=== PATIENT | male | born 1980 | race Caucasian/White ===

== ENCOUNTER → 2018-05-02 | Outpatient (CLI) | payer BC ==
[~2018-05-02] VITALS: Ht 175.3 cm; Wt 89.7 kg
[2018-05-02] VITALS (12 sets, daily range): BP systolic 108–137; BP diastolic 60–86; PULSE 56–70
[~2018-05-02] MED LIST: HUMIRA40 MG/0.8 SQ
[2018-05-02 10:17] LABS: PROTHROMBIN TIME 11.6 SECONDS (9.7-12.8)
--- NOTE | 2018-05-02 11:00 | NUR ---
PT BROUGHT INTO THE ROOM. POSITIONED ON CT TABLE, MONITORING EQUIPMENT PLACED AND TIME OUT DONE.
--- NOTE | 2018-05-02 11:05 | NUR ---
DR CAMARGO TALKING WITH THE PT.
--- NOTE | 2018-05-02 11:15 | NUR ---
PT DOING WELL. NO PIAN
--- NOTE | 2018-05-02 11:20 | NUR ---
PT DOING WELL. NO PAIN
--- NOTE | 2018-05-02 11:25 | NUR ---
PROCEDURE COMPLETE. PT STATES NO PAIN. ASSISTED TO SIT ON SIDE OF THE TABLE. SITE IS CDI. PT STANDS AND GETS IN WHEELCHAIR.
--- NOTE | 2018-05-02 12:40 | NUR ---
PT TAKEN TO LOBBY AND GETS INTO FRIENDS CAR.
== END ==
LOC: COL.RAD 09:44
PROVIDERS: Internal Medicine Gastroenterology
DX: M45.9 Ankylosing spondylitis of unspecified sites in spine (principal); R76.8 Other specified abnormal immunological findings in serum; R74.8 Abnormal levels of other serum enzymes